=== PATIENT | female | born 1980 | race Two or more races ===

== ENCOUNTER 2022-08-13 16:22 | Emergency (ER) | payer OTHER ==
[~2022-08-13] VITALS: Ht 149.9 cm; Wt 105.0 kg
[2022-08-13 19:47] VITALS: BP 135/80
[2022-08-13 19:59] LABS: Urine Bacteria FEW /hpf (None Seen); Urine Blood TRACE /uL (Negative); Urine Specific Gravity 1.007 (1.001-1.035); Urine WBC 2 /hpf (0 - 5)
== END 2022-08-13 19:50 | disposition home or self-care (01) ==
LOC: ER 16:22
DX: R29.810 Facial weakness (principal); I10 Essential (primary) hypertension
CPT/HCPCS: 70450; 81001